=== PATIENT | male | born 1950 | race Caucasian/White ===

== ENCOUNTER → 2016-10-22 | Outpatient (CLI) | payer MEDICARE, BC ==
--- NOTE | 2016-10-22 16:45 | RADRPT ---
PROCEDURE: US left lower extremity veins. CLINICAL INDICATION: Left leg pain and swelling. TECHNIQUE: Multiple longitudinal and transverse images of the left lower extremity veins were obta ined with mazariegos scale and color Doppler imaging. The common femoral vein, femoral vein, and popliteal vein were evaluated. 2D grayscale measurements with compression sonography, pulsed Doppler, color D oppler, and pulsed Doppler with augmentation. COMPARISON: No prior studies are available for comparison. FINDINGS: The left common femoral, femoral and popliteal veins are normally compressible throughout. Color fl ow demonstrates normal filling of the vessels. Normal waveforms are visualized and there is normal response to augmentation. IMPRESSION: 1. No evidence of deep vein thrombosis involving the left lower extremity. RPTAT: QQ .Josh Nascimento MD, MD Date Time Electronically viewed and signed by .Josh Nascimento MD, on 10/22/2016 16:45 .R/
== END | disposition home or self-care (01) ==
LOC: VAS 16:09
PROVIDERS: ATTEND Internal Medicine
DX: R22.42 Localized swelling, mass and lump, left lower limb (principal); M79.662 Pain in left lower leg
CPT/HCPCS: 93971